=== PATIENT | female | born 1975 | race Caucasian/White ===

== ENCOUNTER 2025-05-08 18:44 | Emergency (ER) | payer BC, SELFPAY ==
[2025-05-08 18:53] VITALS: BP 142/83
[2025-05-08 19:18] LABS: Hematocrit 41.4 % (37.0-47.0); Hemoglobin 14.1 g/dL (12.0-16.0); Mean Corp Hgb Conc. 34.1 g/dL (33.0-37.0); Mean Corpuscular Volume 89.2 fL (81.0-99.0); Nucleated Red Blood Cells % 0 %; Platelet Count 303 10^3/uL (130-400); Red Cell Dist. Width 12.4 % (11.5-14.5)
[2025-05-08 19:32] LABS: ALT (SGPT) 29 U/L (0-35); AST (SGOT) 27 U/L (14-36); Albumin 4.5 g/dl (3.5-5.0); Alkaline Phosphatase 75 U/L (38-126); Blood Urea Nitrogen 17 mg/dl (7-17); Calcium 9.7 mg/dl (8.4-10.2); Carbon Dioxide 25 mmol/L (22-30); Chloride 104 mmol/L (98-107); Glucose 138 mg/dl (70-99); Lipase 71 U/L (23-300); Potassium 4.4 mmol/L (3.5-5.1); Sodium 136 mmol/L (135-145); Total Protein 7.3 g/dl (6.3-8.2); eGFR > 60.00
[2025-05-08 21:57] VITALS: BMI 38.4
[2025-05-08 22:01] LABS: Urine Character Clear (Clear)
[2025-05-08 22:04] VITALS: BP 121/79
[2025-05-08 22:25] LABS: Urine Squamous Cell 0-2 /LPF (Few); Urine Urothelial Cell 0-2 /LPF (FEW)
[2025-05-08 23:02] LABS: HCG, Urine Qualitative Screen Negative
--- NOTE | 2025-05-08 23:54 | ED.GENMED ---
History of Present Illness
<Prabhakar Wall DO - Last Filed: 05/08/25 23:55>
General
Chief Complaint: Abdominal Pain
Source: patient
Exam Limitations: none
Time Seen by Provider: 05/08/25 21:00
History of Present Illness
History of Present Illness:
Note:
CHIEF COMPLAINT(S)
Severe abdominal pain.
HISTORY OF PRESENT ILLNESS
The patient is a 49-year-old female who presented with severe abdominal pain that started earlier today. The pain was described as similar to pain experienced during previous sections. The patient reported the pain intensity was initially a
'25' on a scale of 1 to 10, indicating extreme discomfort, but improved to a '3' after taking ibuprofen (Motrin). The abdominal pain did not improve significantly after bowel movements. The patient did not report any abnormal vaginal bleeding,
urinary complaints such as dysuria or hematuria, or significant changes in bowel movements. There is a sensation of deep pelvic discomfort without any accompanying pressure in the vagina. Notably, the patient has a history of three sections
but denies any prior history of ovarian cysts, fibroids, or other gynecological issues, and there is no possibility of . The patient does not have any known allergies to medications.
PAST MEDICAL AND SURGICAL HISTORY
The patient has a history of three sections.
CHRONIC MEDICAL CONDITIONS SIGNIFICANTLY AFFECTING CARE
The patient reports having low blood pressure, diabetes, and cholesterol issues.
REVIEW OF SYSTEMS
- Gastrointestinal: Severe abdominal pain, improved with ibuprofen.
- Genitourinary: No abnormal vaginal bleeding, no urinary complaints.
- Neurological: No reported headaches or neurological symptoms.
PHYSICAL EXAM
General: Alert, no acute distress.
Skin: Warm, dry.
Head: Normocephalic, atraumatic.
Neck: Supple, trachea midline.
Eyes, Ears, Nose, Mouth and Throat: Oral mucosa moist.
Cardiovascular: Normal peripheral perfusion, no edema.
Respiratory: Respirations are non-labored.
Gastrointestinal: Abdomen non-distended, some tenderness noted.
Back: Normal range of motion, normal alignment.
Musculoskeletal: Normal range of motion, normal strength.
Neurological: Alert and oriented to person, place, time, and situation, no focal neurological deficit observed.
Psychiatric: Cooperative, appropriate mood & affect.
PLAN
- Obtain urine sample for analysis.
- Perform computed tomography (CT) scan with contrast to evaluate potential causes of abdominal pain, as it provides comprehensive information about abdominal organs including the bowel, appendix, and vascular issues.
- Monitor for any increase in pain or additional symptoms; report any worsening conditions.
- Discuss results of further imaging and urine analysis as they become available.
DIFFERENTIAL DIAGNOSIS
The Differential Diagnosis includes, in no particular order and is not limited to:
1. Appendicitis
2. Ovarian cyst
3. Diverticulitis
4. Kidney stones
5. Urinary tract infection
6. Bowel obstruction
7. Inflammatory bowel disease
8. Pelvic inflammatory disease
9. Gastrointestinal bleed
10. Abdominal aortic aneurysm
Disposition:
SUMMARY OF ENCOUNTER
A 49-year-old female presented to the emergency department with severe abdominal pain. Initial evaluation included a complete blood count (CBC) and comprehensive metabolic panel (CMP), both of which returned normal results. A urinalysis indicated
mild hematuria, with 3 to 6 red blood cells per high-power field, but no leukocytes or white blood cells. A test was negative. A computed tomography (CT) scan of the abdomen revealed a cystic structure measuring approximately 7 cm in the
lower midline pelvis, raising suspicion for an ovarian cyst. Given the midline location and the patients presentation, differentials included ovarian torsion and ovarian abscess, although lack of fever and leukocytosis made the latter less likely.
Radiology recommended a pelvic ultrasound for further evaluation. The patient was signed out to the evening team with this pending pelvic ultrasound.
PLAN
Proceed with a pelvic ultrasound to further evaluate the cystic structure and rule out possible ovarian torsion or other gynecological concerns. Monitor the patient for any changes in symptoms.
INDEPENDENT REVIEW OF LABS AND INTERPRETATION OF TESTS
My independent review of the CBC is normal.
My independent review of the CMP is normal.
My independent review of the urinalysis is mild hematuria with 3 to 6 red blood cells, no leukocytes.
My independent interpretation of the CT scan indicates a 7 cm cystic structure in the lower midline pelvis, suspicious for an ovarian cyst with recommendations for a pelvic ultrasound.
MEDICAL DECISION MAKING
- Number and Complexity of Problems Addressed: Chronic conditions affecting care include low blood pressure, diabetes, and cholesterol issues. Differential diagnoses considered are appendicitis, ovarian cyst, diverticulitis, kidney stones, urinary
tract infection, bowel obstruction, inflammatory bowel disease, pelvic inflammatory disease, gastrointestinal bleed, and abdominal aortic aneurysm.
- Data:
Category 1:
- Reviewed CBC, CMP, urinalysis, and CT scan.
Category 3:
- Imaging test interpretation recommended by radiology for further evaluation with pelvic ultrasound.
- Risk:
Consideration of Admission/Observation: Escalation of care, including admission/observation, was considered given the complexity and risk of the patients presenting complaint, exam findings, and underlying comorbidities. However, ultimately the
patient is managed as outpatient pending further diagnostic testing and close follow-up, as work-up does not reveal any acute life/organ-threatening processes at this time.
DIAGNOSIS
- Ovarian cyst, unspecified (ICD-10: N83.20)
Past History
<Prabhakar Wall, DO - Last Filed: 05/08/25 23:55>
Past History
ED Past Medical History: None
ED Past Surgical History: None
Social History
Tobacco: Non-smoker
Alcohol: None
Personal:
Phy Exam
<Ryder Hammond DO - Last Filed: 05/09/25 02:16>
Physical Exam
Physical Exam:
Physical Exam
General: no apparent distress, not acutely ill
Neck: No jaundice
Abdomen: Soft nontender no guarding no rebound
Neuro: alert and oriented. no focal neurological deficits
Skin: no rash
Psychiatric: well kept. interactive and cooperative
Extremities: no edema.
Course
<Prabhakar Wall, DO - Last Filed: 05/08/25 23:55>
Orders/Labs/Results
Orders:
Orders
05/08/25 18:57
Complete Blood Count/With Diff Urgent
Comprehensive Metabolic Panel Urgent
Lipase Urgent
05/08/25 21:22
CT Abd/pelvis W Iv Cont Urgent
Comment:
Reason For Exam: lower abd pain
05/08/25 21:55
HCG, Urine Qualitative Screen Urgent
Date Specimen was Collected: 05/08/25
Time Specimen was Collected: 21:26
Comment: ADD ON
Urinalysis Reflex To Culture Urgent
Date Specimen was Collected: 05/08/25
Time Specimen was Collected: 21:26
Urine Microscopic Reflex Cult Urgent
Urine Culture Urgent
DESTINI Source: U
Specimen Description:
Date Specimen was Collected: 05/08/25
Time Specimen was Collected: 21:26
05/08/25 22:51
Add On- LAB Urgent
Tests Added?: urine HCG
05/09/25 23:53
US Pelvis W Transvag Combined Urgent
Reason For Exam: pelvic pain
Abnormal Lab Results
05/08/25 05/08/25
18:57 21:55
Absolute Neuts (auto) 8.6 H 10^3/uL
(1.4-6.5)
Neutrophils % 80.3 H %
(42.2-75.2)
Lymphocytes % 13.6 L %
(20.5-51.1)
Glucose 138 H mg/dl
(70-99)
Urine RBC 3-6 A /HPF
(0-2)
Urine Bacteria (Reflex) Moderate A
(Negative)
Urine Albumin (Reflex) 1+ A
(Neg - Trace)
05/08/25 18:57
05/08/25 18:57
Vital Signs
Initial and Last Documented VS:
Initial Vital Signs
Temp Pulse Resp BP Pulse Ox
98.5 F 81 16 142/83 97
05/08/25 18:53 05/08/25 18:53 05/08/25 18:53 05/08/25 18:53 05/08/25 18:53
Last Documented Vital Signs
Temp Pulse Resp BP Pulse Ox
98.5 F 81 16 122/83 98
05/08/25 18:53 05/08/25 18:53 05/08/25 18:53 05/09/25 01:22 05/09/25 01:23
<Ryder Hammond, DO - Last Filed: 05/09/25 02:16>
Orders/Labs/Results
Orders:
Orders
05/08/25 18:57
Complete Blood Count/With Diff Urgent
Comprehensive Metabolic Panel Urgent
Lipase Urgent
05/08/25 21:22
CT Abd/pelvis W Iv Cont Urgent
Comment:
Reason For Exam: lower abd pain
05/08/25 21:55
HCG, Urine Qualitative Screen Urgent
Date Specimen was Collected: 05/08/25
Time Specimen was Collected: 21:26
Comment: ADD ON
Urinalysis Reflex To Culture Urgent
Date Specimen was Collected: 05/08/25
Time Specimen was Collected: 21:26
Urine Microscopic Reflex Cult Urgent
Urine Culture Urgent
DESTINI Source: U
Specimen Description:
Date Specimen was Collected: 05/08/25
Time Specimen was Collected: 21:26
05/08/25 22:51
Add On- LAB Urgent
Tests Added?: urine HCG
05/09/25 23:53
US Pelvis W Transvag Combined Urgent
Reason For Exam: pelvic pain
Abnormal Lab Results
05/08/25 05/08/25
18:57 21:55
Absolute Neuts (auto) 8.6 H 10^3/uL
(1.4-6.5)
Neutrophils % 80.3 H %
(42.2-75.2)
Lymphocytes % 13.6 L %
(20.5-51.1)
Glucose 138 H mg/dl
(70-99)
Urine RBC 3-6 A /HPF
(0-2)
Urine Bacteria (Reflex) Moderate A
(Negative)
Urine Albumin (Reflex) 1+ A
(Neg - Trace)
05/08/25 18:57
05/08/25 18:57
Vital Signs
Initial and Last Documented VS:
Initial Vital Signs
Temp Pulse Resp BP Pulse Ox
98.5 F 81 16 142/83 97
05/08/25 18:53 05/08/25 18:53 05/08/25 18:53 05/08/25 18:53 05/08/25 18:53
Last Documented Vital Signs
Temp Pulse Resp BP Pulse Ox
98.5 F 81 16 122/83 98
05/08/25 18:53 05/08/25 18:53 05/08/25 18:53 05/09/25 01:22 05/09/25 01:23
<Prabhakar Wall, DO - Last Filed: 05/08/25 23:55>
*Pulse Oximetry
SaO2: 98
Oxygen Mode of Delivery: Room air
Patient hypoxic: no
*Critical Care Note
Total Time (30-74mins, 75-104mins- exclusive of procedures): Not Applicable
<Ryder Hammond, DO - Last Filed: 05/09/25 02:16>
Update Note
Update Note:
2 AM
Signout pending pelvic ultrasound reevaluation question of ovarian torsion or fullness on a CT scan
Ultrasound report noted waveforms are present cannot rule out intermittent torsion
Patient examined she is smiling drinking nabil eduardo in no acute distress she no longer has any pain in her abdomen took an ibuprofen before she came did not receive any narcotics
Perimenopausal has not had menstrual cycle in about a year previously saw Dr. Medeiros
Most recently saw security and privacy consultant [facility]
Reviewed the results of her imaging with her
Clinically I do not suspect torsion currently, no peritoneal signs, smiling no leukocytosis drinking nabil eduardo I believe she can safely be discharged home with caveat that she returns to the ER immediately if worsening symptoms
ED Attending Note
<Prabhakar Wall DO - Last Filed: 05/08/25 23:55>
-
Portions of this chart may have been created with voice recognition software.� Occasional wrong word or��sound alike� substitutions may have occurred due to the inherent limitations of voice recognition software.
Discharge Plan
Departure
Patient Disposition: Home (Routine Discharge)
Date of Disposition: 05/09/25
Time of Disposition: 02:11
Patient with high blood pressure during this ER visit?: No
Condition: Good
Discharge Problem:
Pelvic pain
Instructions: Pelvic pain - ED (DC)
Prescriptions:
New
ibuprofen 600 mg tablet
600 mg PO Q8H PRN (Reason: Pain) Qty: 20 0RF
No Action
No Meds [No Current Medications]
0
Referrals:
Denisse Gleason DO [Family Provider, Family Practice]
Nuris Villarreal DO [Active, Gynecology] - Next open appointment
Activity Restrictions/Additional Instructions:
Drink plenty fluids Tylenol or ibuprofen for mild pain if your pain worsens, becomes severe return to the ER
Follow-up with your HOME ASSESSMENT NURSE in [place] or [facility]
Interventions
Interventions:
*Risk Screen - Suicide Last Done: 05/08/25 18:54
*General Assessment Last Done: 05/08/25 21:57
*Neglect/Abuse Screening Last Done: 05/08/25 18:54
*ED- Fall Risk Assessment Last Done: 05/08/25 21:57
*ED COVID-19 Vaccine History Last Done: 05/08/25 21:57
*ED Influenza Vaccine History Last Done: 05/08/25 21:57
ML-Qlvrvn-[id number] Assessment Last Done: 05/08/25 21:57
Discharge Date and Time
Print Language: ARABIC
[2025-05-09 01:22] VITALS: BP 122/83
[2025-05-09 02:19] VITALS: BP 122/70
== END 2025-05-09 02:22 | disposition home or self-care (01) ==
LOC: EMR 18:44
PROVIDERS: Emergency Medicine; EMERGENCY PHYSICIAN Emergency Medicine; FAMILY PHYSICIAN Family Medicine
DX: R10.20 Pelvic and perineal pain unspecified side (principal); E11.9 Type 2 diabetes mellitus without complications; Z98.891 History of uterine scar from previous surgery
CPT/HCPCS: 99285; 74177; 76830; 76856; 80053; 81003; 81015; 81025; 83690; 85025; 87086; Q9967